=== PATIENT | male | born 1960 | race Caucasian/White ===

== ENCOUNTER 2020-11-08 08:52 | Inpatient (IN) | payer BC, OTHER ==
[~2020-11-08] VITALS: Ht 180.3 cm; Wt 104.6 kg
[2020-11-08] MEDS ORDERED: KETOROLAC 30 MG/1 ML ONE (09:12)
[2020-11-08] MEDS ORDERED: ONDANSETRON ODT 4 MG ONE (09:12)
[2020-11-08] MEDS ORDERED: HYDROmorphone 1 MG/ML, 1ML INJ ONE ×2 (09:13→11:40)
--- NOTE | 2020-11-08 09:25 | NUR ---
BLADDER SCAN FOR 55 ML. PT STATES HE HAS BEEN ABLE TO URINATE SMALL AMOUNTS THIS AM. URINAL PROVIDED, PT AWARE OF NEED FOR UA. PT REFUSING IV, REQUESTING IM SHOTS INSTEAD. ERP NOTIFIED, ORDER CHANGED. MEDS GIVEN FOR 10/10 R FLANK PAIN. PT DENIES N/V, BLADDER PAIN. LABS DRAWN BY TRACK REPAIR PERSON. BP CUFF, PULSE OX IN PLACE. CALL LIGHT WITHIN REACH.
[2020-11-08] MEDS ORDERED: KETOROLAC 30 MG/1 ML IM ONE (09:30)
[2020-11-08] MEDS ORDERED: ONDANSETRON ODT 4 MG PO ONE (09:30)
[2020-11-08] MEDS ORDERED: HYDROmorphone 2 MG/ML, 1ML IM ONE (09:30)
[2020-11-08 09:40] LABS: ALANINE AMINOTRANSFERASE 34 U/L (12-78); ALBUMIN 3.6 g/dL (3.4-5.0); ANION GAP 8 mmol/L (5-15); CALCIUM 8.5 mg/dL (8.5-10.1); CHLORIDE 109 mmol/L (98-107); CREATININE 1.78 mg/dL (0.7-1.3)
[2020-11-08 09:42] LABS: ALKALINE PHOSPHATASE 77 U/L (45-117); BILIRUBIN,TOTAL 0.5 mg/dL (0.2-1.0); TOTAL PROTEIN 7.9 g/dL (6.4-8.2)
[2020-11-08 10:25] LABS: BASOPHILS % (AUTO) 1 % (0-1); EOSINOPHILS % (AUTO) 6 % (1-7); LYMPHOCYTES % (AUTO) 34 % (22-44); MEAN CORPUSCULAR HGB CONC 33.7 g/dL (33.2-36.2); MEAN PLATELET VOLUME 8.4 fL (7.4-10.4); MONOCYTES % (AUTO) 15 % (2-9); NEUTROPHILS % (AUTO) 44 % (42-75); PLATELET COUNT 322 x10^3/uL (130-400); RED BLOOD COUNT 4.39 x10^6/uL (4.38-5.82); RED CELL DISTRIBUTION WIDTH 14.5 % (9.4-14.8)
[2020-11-08 10:26] LABS: MD NO
--- NOTE | 2020-11-08 11:13 | NUR ---
TASK NURSE: OBTAINED UA SAMPLE. PT AMBULATED TO BATHROOM AND BACK TO ROOM. ATTEMPTED BM BUT UNSUCCESSFUL. PT ATTACHED BACK TO MONITORS. VSS. CALL LIGHT WITHIN REACH. BED IN LOW POSITION.
--- NOTE | 2020-11-08 11:17 | NUR ---
PT CONSENTING TO IV AT THIS TIME. ED MEDIC TO START IV, ERP NOTIFIED OF THIS AND PT REQUESTING MORE PAIN MEDS.
[2020-11-08 11:20] LABS: MICROSCOPIC AUTO
[2020-11-08] MEDS ORDERED: HYDROmorphone 1 MG/ML, 1ML INJ IV ONE (11:30)
[2020-11-08] MEDS ORDERED: SODIUM CHLORIDE FLUSH 10ML SYR IVF ONE (11:30)
[2020-11-08] MEDS ORDERED: [UNRECOGNIZED DRUG - REMARK] PO (11:45)
--- NOTE | 2020-11-08 12:28 | NUR ---
RAPID COVID SWAB OBTAINED/WALKED TO LAB.
[2020-11-08] MEDS ORDERED: ENALAPRILAT 1.25 MG/ML, 2ML IVPush PRN (13:00)
[2020-11-08] MEDS ORDERED: ACETAMINOPHEN 325 MG TABLET PO PRN ×2 (13:00→16:00)
[2020-11-08] MEDS ORDERED: ONDANSETRON 2MG/ML, 2ML IVPush PRN ×2 (13:00→16:00)
[2020-11-08] MEDS ORDERED: HYDROcodone/APAP 5/325 TABLET PO PRN (13:00)
--- NOTE | 2020-11-08 13:00 | NUR ---
REPORT TO DAVIDA COATES READY FOR TRANSPORT TO FLOOR.
[2020-11-08 13:31] VITALS: BP 158/90
[2020-11-08 14:00] VITALS: BP 158/90
[2020-11-08] MEDS ORDERED: OMEP40CA42 PO (14:08)
[2020-11-08] MEDS ORDERED: OMNIPAQUE 350 MG/ML, 50 ML BOTTLE ONE (15:02)
[2020-11-08] MEDS ORDERED: CEFAZOLIN 1,000 MG ONE (15:11)
[2020-11-08] MEDS ORDERED: FENTANYL PF 250 MCG/5ML ONE (15:42)
[2020-11-08] MEDS ORDERED: LABETALOL 5MG/ML, 20ML IV PRN (16:00)
[2020-11-08] MEDS ORDERED: OXYcodone 5 MG/5 ML ORAL.SOL UDC PO PRN (16:00)
[2020-11-08] MEDS ORDERED: HYDROmorphone 1 MG/ML, 1ML INJ IVPush PRN (16:00)
[2020-11-08] MEDS ORDERED: METHOCARBAMOL 1,000 MG in DEXTROSE 5% 100 ML IV PRN (16:00)
[2020-11-08] MEDS ORDERED: EPHEDRINE 50 MG/ML, 1ML IVPush PRN (16:00)
[2020-11-08] MEDS ORDERED: hydrALAzine 20 MG/ML, 1ML IV PRN (16:00)
[2020-11-08] MEDS ORDERED: MEPERIDINE/PF 25MG/0.5ML IVPush PRN (16:00)
[2020-11-08] MEDS ORDERED: PROMETHAZINE 25 MG/ML, 1ML IVPush PRN (16:00)
[2020-11-08] MEDS ORDERED: LORazepam 2 MG/ML, 1ML IVPush PRN (16:00)
[2020-11-08] MEDS ORDERED: OPIUM/BELLADONNA SUPP.RECT 16.2-60 MG PR PRN (16:30)
[2020-11-08] MEDS ORDERED: OPIUM/BELLADONNA SUPP.RECT 16.2-30 MG ONE (16:33)
[2020-11-08] MEDS: FENTANYL PF 100 MCG/2ML IV PRN ×2 (16:50→17:07)
[2020-11-08] MEDS ORDERED: hydrALAzine 20 MG/ML, 1ML ONE (17:12)
[2020-11-08 18:33] VITALS: BP 161/93
[2020-11-08] MEDS: morphine SULFATE 10 MG/ML, 1ML IVPush PRN ×3 (20:47→22:04)
[2020-11-08] MEDS: LACTATED RINGERS 1,000 ML IV SCH (20:56)
[2020-11-08] MEDS: PHENAZOPYRIDINE 200 MG TABLET PO PRN (23:35)
[2020-11-09 00:03] VITALS: BP 152/85
[2020-11-09] MEDS: morphine SULFATE 10 MG/ML, 1ML IVPush PRN ×2 (01:13→05:32)
[2020-11-09 04:40] VITALS: BP 119/69
[2020-11-09 05:08] LABS: BASOPHILS % (AUTO) 1 % (0-1); EOSINOPHILS % (AUTO) 2 % (1-7); LYMPHOCYTES % (AUTO) 23 % (22-44); MEAN CORPUSCULAR HEMOGLOBIN 32.4 pg (27.5-34.5); MEAN CORPUSCULAR HGB CONC 32.9 g/dL (33.2-36.2); MEAN PLATELET VOLUME 8.4 fL (7.4-10.4); MONOCYTES % (AUTO) 15 % (2-9); NEUTROPHILS % (AUTO) 60 % (42-75); PLATELET COUNT 301 x10^3/uL (130-400); RED BLOOD COUNT 3.96 x10^6/uL (4.38-5.82); RED CELL DISTRIBUTION WIDTH 14.6 % (9.4-14.8)
[2020-11-09 05:20] LABS: CHLORIDE 110 mmol/L (98-107)
[2020-11-09 05:28] LABS: ALANINE AMINOTRANSFERASE 24 U/L (12-78); ALBUMIN 2.9 g/dL (3.4-5.0); ALKALINE PHOSPHATASE 68 U/L (45-117); ANION GAP 5 mmol/L (5-15); BILIRUBIN,TOTAL 0.5 mg/dL (0.2-1.0); CALCIUM 7.9 mg/dL (8.5-10.1); TOTAL PROTEIN 6.5 g/dL (6.4-8.2)
[2020-11-09 05:38] LABS: MD SCAN
[2020-11-09 06:46] VITALS: BP 124/75
[2020-11-09] MEDS: PHENAZOPYRIDINE 200 MG TABLET PO PRN ×2 (09:09→15:53)
[2020-11-09] MEDS: DOCUSATE 100 MG CAPSULE PO PRN (09:09)
[2020-11-09] MEDS: PANTOPRAZOLE 40MG TABLET PO SCH (09:09)
[2020-11-09] MEDS: LACTATED RINGERS 1,000 ML IV SCH (09:10)
[2020-11-09 12:15] VITALS: BP 111/70
[2020-11-09] MEDS ORDERED: CYCLOBENZAPRINE 10 MG TABLET PO ONE (17:00)
[2020-11-09 18:43] VITALS: BP 120/71
[2020-11-09] MEDS: CEFDINIR 300 MG CAPSULE PO SCH (20:36)
[2020-11-10 01:48] VITALS: BP 131/73
[2020-11-10] MEDS: PHENAZOPYRIDINE 200 MG TABLET PO PRN (04:13)
[2020-11-10 07:45] VITALS: BP 155/94
[2020-11-10 07:58] LABS: BASOPHILS % (AUTO) 1 % (0-1); EOSINOPHILS % (AUTO) 6 % (1-7); LYMPHOCYTES % (AUTO) 20 % (22-44); MEAN CORPUSCULAR HEMOGLOBIN 32.6 pg (27.5-34.5); MEAN PLATELET VOLUME 7.6 fL (7.4-10.4); MONOCYTES % (AUTO) 14 % (2-9); NEUTROPHILS % (AUTO) 61 % (42-75); PLATELET COUNT 292 x10^3/uL (130-400); RED BLOOD COUNT 4.13 x10^6/uL (4.38-5.82); RED CELL DISTRIBUTION WIDTH 14.5 % (9.4-14.8)
[2020-11-10 08:11] LABS: CHLORIDE 108 mmol/L (98-107)
[2020-11-10 08:17] LABS: ANION GAP 5 mmol/L (5-15); CALCIUM 8.7 mg/dL (8.5-10.1)
[2020-11-10 08:32] LABS: MD SCAN
[2020-11-10] MEDS: CEFDINIR 300 MG CAPSULE PO SCH (09:11)
[2020-11-10] MEDS: PANTOPRAZOLE 40MG TABLET PO SCH (09:11)
[2020-11-10] MEDS: DOCUSATE 100 MG CAPSULE PO PRN (09:11)
[2020-11-10] MEDS ORDERED: PHEN-583 PO (09:12)
[2020-11-10] MEDS ORDERED: TRAM50TA2 PO (09:12)
[2020-11-10] MEDS ORDERED: CEFD300C37 PO (09:12)
[2020-11-10 11:02] VITALS: BP 144/88
== END 2020-11-10 11:26 | disposition home or self-care (01) | DRG 661 ==
LOC: ED 11:28 → EDIP 12:14 → SUATTDRO 12:22 → 4NE 13:10 → DCLOUNGE 11-10 11:15
PROVIDERS: ADMIT Hospitalist; ATTEND Hospitalist
PROC: 0TC68ZZ Extirpation of Matter from Right Ureter, Via Natural or Artificial Opening Endoscopic (ICD-10-PCS; 2020-11-08)
PROC: BT14ZZZ Fluoroscopy of Kidneys, Ureters and Bladder (ICD-10-PCS; 2020-11-08)
PROC: 0TC08ZZ Extirpation of Matter from Right Kidney, Via Natural or Artificial Opening Endoscopic (ICD-10-PCS; 2020-11-08)
PROC: 0T768DZ Dilation of Right Ureter with Intraluminal Device, Via Natural or Artificial Opening Endoscopic (ICD-10-PCS; principal; 2020-11-08 16:00)
DX: N13.2 Hydronephrosis with renal and ureteral calculous obstruction (principal); N17.9 Acute kidney failure, unspecified; D72.828 Other elevated white blood cell count; K80.20 Calculus of gallbladder without cholecystitis without obstruction; Z20.822 Contact with and (suspected) exposure to COVID-19; Z87.442 Personal history of urinary calculi; Z90.411 Acquired partial absence of pancreas; Z90.5 Acquired absence of kidney; Z90.81 Acquired absence of spleen
CPT/HCPCS: 36415; 74176; 74420; 80048; 80053; 81001; 82360; 85025; 87635; 88300; 96372; 96374; G0378; J0690; J1170; J1885; J3010; Q0162; Q9967; C1769; C2617; J0360; J2270; J7120